=== PATIENT | male | born 1950 | race Caucasian/White ===

== ENCOUNTER 2019-02-04 09:34 | Emergency (ER) | payer MEDICARE, OTHER, SELFPAY ==
[2019-02-04 09:35] VITALS: BP 139/69; PULSE 79; RESP 20; TEMP 36.3; O2SAT 95; BMI 35.8
--- NOTE | 2019-02-04 09:39 | EKG12_ITS ---
Test Reason : ABNL PAIN Blood Pressure : / mmHG Vent. Rate : 078 BPM Atrial Rate : 078 BPM P-R Int : 166 ms QRS Dur : 092 ms QT Int : 390 ms P-R-T Axes : 064 -30 044 degrees QTc Int : 444 ms Normal sinus rhythm Left axis deviation Abnormal ECG Confirmed by BERRY LEWIS ([id number]), senior editor SO WHITTAKER ([id number]) on 02/11/2019 8:51:50 AM Referred By: WOODY Confirmed By:BERRY LEWIS
--- NOTE | 2019-02-04 09:49 | CT_ITS ---
STUDY: CT ABDOMEN AND PELVIS WITHOUT CONTRAST REASON FOR EXAM: Male, 68 years old. Abdominal pain and diarrhea following ingestion of clindamycin. RADIATION DOSAGE (If Supplied By Facility): CTDIvol = ( 14.80 ) mGy, DLP = ( 770.45 ) mGycm TECHNIQUE: Transaxial images were obtained from the dome of the diaphragm to the symphysis pubis without oral contrast, and without intravenous contrast. Sagittal and coronal images were reconstructed. Individualized dose optimization techniques were used for this CT. COMPARISON: None. FINDINGS: The visualized lung bases are unremarkable. The visualized portions of the heart are within normal limits. Normal liver. There are multiple gallstones. Normal spleen. Normal pancreas. Normal bilateral adrenal glands. Normal right kidney. Normal left kidney. Normal visualized stomach. Normal small intestine. There are multiple colonic diverticula consistent with diverticulosis. The appendix is visualized and appears normal. There is diffuse atherosclerotic calcification of the abdominal aorta, without a demonstrated aneurysm. Normal inferior vena cava. Normal retroperitoneum. Normal urinary bladder. Small bilateral inguinal lymph nodes. Normal abdominal wall. There are diffuse degenerative changes of the visualized lumbar spine. CT/Abdomen/Pelvis without Cont IMPRESSION: Sigmoid diverticulosis. Multiple gallstones. Electronically Signed: Rivas Thomson, at 11:13 EDT , Service support ,
--- NOTE | 2019-02-04 09:51 | ED.VISSUMM ---
- ER Visit Summary Date of Service: 02/04/19 Chief Complaint: [] Generalized abdominal pain diarrhea after starting clindamycin yesterday History of Present Illness: The patient is a 68 M [] patient indicates he has hypertension diabetes and cholesterol, he indicates he is to have a full mouth extraction in preparation for dentures, he was started on clindamycin yesterday took about 2 or 3 doses of it began having diffuse abdominal discomfort and diarrhea has been quite constant, he is been no blood in the diarrhea no vomiting he stopped the antibiotic continue to have symptoms and came in this morning for evaluation, he had prior colonoscopy 10 years ago related to rectal bleeding that was unremarkable, he generally has no GI issues of any kind all of his health conditions have been very stable he was not sick before he took the clindamycin, he has no history of C. difficile no history of exposures to tainted food or sick individuals Physical Examination: [] Vital signs are within normal range febrile General, no distress resting comfortably, he complains of diffuse generalized abdominal pain there is no focality to the pain HEENT is generally unremarkable The neck is supple no adenopathy Cardiovascular, regular rate and rhythm Lungs, clear bilateral Abdomen, soft nontender, soft he has had nonspecific sense of discomfort but no rebound guarding organomegaly no fullness Extremities, no clubbing cyanosis or edema Neurologic, awake alert answering questions appropriately moving all 4 extremities Test Results: [] Emergency Department Course and Treatment: [] Given his age and his complaints and his concerns screening labs are obtained IV fluids pain management we will try to obtain stool sample Treatment Plan: [] The patient's screening labs are all generally unremarkable see those reports, his CT scan shows gallstones no other acute abnormality, see that report, He has not had to have a bowel movement while in the ED, I explained all the test results to him his clinical status is very stable he understands to stop the antibiotic stay in a bland diet follow-up with his family physicians and outpatient providers in the next few days and return for change in symptoms he understands as does his Disposition: [] Home stable Impression: [] Diffuse abdominal cramps with diarrhea after antibiotic therapy improved This note was generated with [employer] software. It may contain incorrect words, spelling, and punctuation that were not noted in review of the chart prior to signing ED Disposition - Plan for ED Patient: Referrals: Kaushal Hyde III, MD [Primary Care Provider] -
[2019-02-04 10:14] LABS: Absolute Lymphocyte Count 1.82 X10^3/ul (0.83-4.51); Absolute Neutrophil Count 6.6 X10^3/uL (2.0-7.7); Basophil# 0.03 X10^3/uL; Basophil% 0.3 % (0-1); Eosinophil# 0.04 X10^3/uL; Eosinophils% 0.4 % (0-5); Hematocrit 49.2 % (40-54); Lymphocyte # 1.82 X10^3/ul (4.0); Lymphocyte % 20.2 % (19-41); Mean Corp Hgb Conc 34.6 g/gl (32-36); Mean Corpuscular Hgb 31.1 pg (27.0-32.0); Mean Corpuscular Volume 90.1 fL (80-94); Mean Platelet Vol. 9.9 fl (6.2-12.0); Monocyte# 0.51 X10^3/uL; Monocyte% 5.6 % (0-10); Neutrophil # 6.61 X10^3/uL (2.7-7.7); Neutrophil % 73.3 % (47-70); POSITIVE COUNT NO; POSITIVE DIFFERENTIAL NO; POSITIVE MORPHOLOGY NO; Platelet Count 245 K/mm3 (150-450); RBC Distribution Width CV 14.3 % (11.6-14.6); RBC Distribution Width SD 47.2 fl (35.1-43.9); Red Blood Count 5.46 M/mm3 (4.6-6.2)
[2019-02-04] MEDS: Ondansetron 4 MG/2 ML Vial IV (10:23)
[2019-02-04] MEDS: 0.9% Normal Saline 1,000 ML 125 ML IV (10:23)
[2019-02-04] MEDS: morphine 8 MG/ML Syringe IV (10:24)
[2019-02-04 10:37] LABS: ALB/GLOB Ratio 1.1 RATIO (0.9-2.4); AST(SGOT) 26 U/L (15-37); Alanine Aminotransfer ALT/SGPT 41 U/L (16-61); Albumin, Serum 3.8 g/dL (3.2-5.0); Alkaline Phosphatase 81 U/L (45-117); Anion Gap 8 (5-15); BUN 15 mg/dL (7-18); BUN/Creat Ratio 12.2 RATIO (10-20); Calcium,Total 9.1 mg/dL (8.5-10.1); Chloride 107 mmol/L (98-107); Creatinine, Serum 1.23 mg/dL (0.70-1.30); EST Glomerular Filtration Rate 62 mL/min (>60); Est Glom Filt Rate - Afr Amer 75 mL/min (>60); Estimated Creatinine Clearance 63.97 ml/min; Globulin 3.6 g/dL (2.2-4.2); Glucose 138 mg/dL (74-106); Lipase 356 U/L (73-393); Potassium 3.8 mmol/L (3.5-5.1); Protein, Total 7.4 g/dL (6.4-8.2); Sodium Level 139 mmol/L (136-145)
[2019-02-04 10:42] LABS: Color, Urine Yellow (Yellow); Glucose, Dipstick Normal (Normal); Ketone-Dipstick Negative (Negative); Leukocyte Esterase-Dipstick 25 /ul (Negative); Nitrite-Dipstick Negative (Negative); Occult Blood-Urine 10 /ul (Negative); Protein-Dipstick Negative (Negative); Specific Gravity, Urine 1.015 (1.002-1.030); Urine Bilirubin Dipstick Negative (Negative); Urine Clarity Sl. Cloudy (Clear); Urine Urobilinogen Normal (Normal)
[2019-02-04 10:48] LABS: Bacteria RARE /hpf (None Seen); Mucous, Urine RARE /hpf (<or=2+); Red Blood Cells-Urine 0-5 SEEN /hpf (0-5); Squamous Epithelial Cells - UA 0-5 SEEN /hpf (0-5); White Blood Cells 0-5 SEEN /hpf (0-5)
[2019-02-04 11:00] VITALS: BP 139/79; PULSE 64; RESP 19; O2SAT 98
[2019-02-04] MEDS: Morphine 4 MG/ML Syringe IV (11:06)
--- NOTE | 2019-02-04 11:44 | ED.DEP ---
ED Disposition - Plan for ED Patient: Instructions: ED Abdominal Pain Unkn Cause Male Referrals: Kaushal Hyde III, MD [Primary Care Provider] -
[2019-02-04 11:54] VITALS: BP 135/79; PULSE 89; RESP 16; O2SAT 99
== END 2019-02-04 11:55 | disposition home or self-care (01) ==
LOC: ED 10:14
PROVIDERS: Emergency Provider Emergency Medicine; Family Provider Family Medicine; PCP Family Medicine
DX: R10.84 Generalized abdominal pain (principal); R19.7 Diarrhea, unspecified; K80.80 Other cholelithiasis without obstruction; I10 Essential (primary) hypertension; E78.00 Pure hypercholesterolemia, unspecified; E11.9 Type 2 diabetes mellitus without complications; Z79.84 Long term (current) use of oral hypoglycemic drugs; Z79.899 Other long term (current) drug therapy
CPT/HCPCS: 74176; 80053; 81001; 83690; 84484; 85025; 93005; 96361; 96374; 96375; 99283; J7030; J7040; A4216; J2405

== ENCOUNTER → 2020-07-25 06:56 | Outpatient (CLI) | payer MEDICARE, OTHER, SELFPAY ==
[2020-05-29 12:31] VITALS: BMI 35.8
--- NOTE | 2020-07-25 06:57 | CT_ITS ---
STUDY: CT SCAN LOWER EXTREMITY LEFT REASON FOR EXAM: Male, 69 years old. GERALDO PROTOCOL, LT HIP PAIN RADIATION DOSAGE (If Supplied By Facility): CTDIvol = ( 14.07 ) mGy, DLP = ( 937.91 ) mGycm. Individualized dose optimization techniques were used for this CT.? TECHNIQUE: Multiple axial tomographic images of the hip joint and knee joint were obtained. Coronal and sagittal reconstruction was obtained as well. COMPARISON: None. FINDINGS: There is a marked degree of the joint space narrowing along the superior lateral compartment of the left hip joint. There is evidence of a acetabular spur. A spur is also seen along the inferior medial aspect of the left femoral head. Moderate degree of joint space narrowing of the right hip joint with evidence of an acetabular spur. Degenerative changes of the sacroiliac joints bilaterally more prominent on the right side. This also evidence of a disc space narrowing and disc degeneration in the lower lumbar spine. Moderate degree of joint space narrowing of the medial compartment of the right knee joint as well as a mild degree of joint space narrowing involving the medial compartment of the left knee joint. CT/Extremity Lower without Contra IMPRESSION: Marked degree of osteoarthritis involving the left hip joint as described. Electronically Signed: Rivas Thomson, at 8:08 EST , Service support ,
== END ==
PROVIDERS: PCP Family Medicine; Referring Provider Orthopaedic Surgery; Visit Provider Orthopaedic Surgery
DX: M16.12 Unilateral primary osteoarthritis, left hip (principal)
CPT/HCPCS: 73700

== ENCOUNTER 2020-08-15 16:41 | Observation (INO) | payer MEDICARE, OTHER, SELFPAY ==
[2020-05-29 12:31] VITALS: BMI 35.8
--- NOTE | 2020-08-03 10:08 | EKG12_ITS ---
Test Reason : PREOP Blood Pressure : / mmHG Vent. Rate : 074 BPM Atrial Rate : 074 BPM P-R Int : 160 ms QRS Dur : 088 ms QT Int : 382 ms P-R-T Axes : 059 -34 033 degrees QTc Int : 424 ms Normal sinus rhythm Left axis deviation Abnormal ECG When compared with ECG of 04-FEB-2019 09:48, No significant change was found Confirmed by GIOVANI MARTINEZ, DEMI ([id number]), technical writer and editor SO WHITTAKER ([id number]) on 08/04/2020 10:57:06 AM Referred By: Swapnil Ag Confirmed By:DEMI MATUTE MD
[2020-08-03 10:55] LABS: Absolute Lymphocyte Count 2.58 X10^3/uL (0.83-4.51); Absolute Neutrophil Count 3.7 X10^3/uL (2.0-7.7); Basophil# 0.08 X10^3/uL; Basophil% 1.1 % (0-1); Eosinophil# 0.16 X10^3/uL; Eosinophils% 2.3 % (0-5); Hemoglobin 16.6 g/dL (13.0-16.5); Lymphocyte # 2.58 X10^3/ul (4.0); Lymphocyte % 36.4 % (19-41); Mean Corp Hgb Conc 33.2 g/dL (32-36); Mean Corpuscular Hgb 31.7 pg (27.0-32.0); Mean Corpuscular Volume 95.4 fL (80-94); Mean Platelet Vol. 10.1 fl (6.2-12.0); Monocyte% 7.1 % (0-10); NRBC Flagged by Analyzer 0 % (0-5); Neutrophil # 3.74 X10^3/uL (2.7-7.7); Neutrophil % 52.8 % (47-70); Platelet Count 243 K/mm3 (150-450); RBC Distribution Width CV 13.2 % (11.6-14.6); RBC Distribution Width SD 46.7 fl (35.1-43.9); Red Blood Count 5.24 M/mm3 (4.6-6.2); White Blood Count 7.1 K/mm3 (4.4-11.0)
[2020-08-03 11:06] LABS: Prothrombin Time (Protime)PT. 12.8 SECONDS (11.7-14.9)
[2020-08-03 11:07] LABS: Partial Thromboplast Time 31.1 Seconds (24.1-36.2)
[2020-08-03 11:25] LABS: Anion Gap 3 (5-15); BUN 17 mg/dL (7-18); BUN/Creat Ratio 15.5 RATIO (10-20); Calcium,Total 8.8 mg/dL (8.5-10.1); Chloride 107 mmol/L (98-107); EST Glomerular Filtration Rate 71 mL/min (>60); Est Glom Filt Rate - Afr Amer 85 mL/min (>60); Glucose 91 mg/dL (74-106); Magnesium 2.3 mg/dL (1.6-2.6); Potassium 4.1 mmol/L (3.5-5.1); Sodium Level 137 mmol/L (136-145)
[2020-08-15] VITALS (16 sets, daily range): BP systolic 94–128; BP diastolic 52–77; PULSE 60–87; RESP 12–18; TEMP 36–37.3; O2SAT 94–100; BMI 35.2
[2020-08-15] MEDS: Scopolamine 1mg/72hr Patch 1 PATCH TD (06:14)
[2020-08-15] MEDS: Celecoxib 200 MG Capsule 400 MG PO (06:14)
[2020-08-15] MEDS: Gabapentin 600 MG Tablet PO (06:15)
[2020-08-15] MEDS: Lactated Ringers 1,000 ML 100 ML IV (06:15)
[2020-08-15] MEDS: Acetaminophen 500 MG Tablet 1000 MG PO ×3 (06:15→22:13)
[2020-08-15] MEDS: Lactated Ringers 1,000 ML 999 ML IV (06:15)
[2020-08-15 07:00] LABS: Bedside Glucose 89 mg/dL (70-110)
--- NOTE | 2020-08-15 07:17 | PCM.HP.BLA ---
History and Physical Date of Admission: 08/15/20 Intake Intake Visit Reasons: left hip Is patient in pain?: Yes Allergies clindamycin Adverse Reaction (Verified 07/19/20 09:21) Abd cramps/diarrhea Penicillins [PCN] Adverse Reaction (Verified 07/19/20 09:21) Diarrhea Medications Atorvastatin Calcium [Lipitor] 40 mg PO QHS 02/04/19 [History Confirmed 07/19/20] gabapentin 300 mg capsule 300 mg PO TID 05/24/20 [History Confirmed 07/19/20] naproxen 250 mg tablet 250 mg PO BID 05/24/20 [History Confirmed 07/19/20] PFSH Social History (Updated 07/19/20 @ 10:[address] Swapnil Ag DO) Smoking Status: Current every day smoker HPI left hip: Details: Parts of this documentation were recorded by a scribe, this documentation accurately reflects the service provided and the decisions made by me, Dr. wSapnil Ag DO 07/19/20 [id number]. JOSH JENNINGS is a 69 year old M here today for to discuss left RANDY: Uribe 08/15/2020. Patient states that he continues to have left hip pain. He complains of pain into his groin, lateral hip and down into his knee. He has increased hip pain with walking and standing. Patient has decreased hip range of motion. He is ambulating with a cane due to his hip pain. Patient is taking naproxen and tylenol for pain. ROS Musc Reports joint pain, Reports limited joint movement, Reports stiffness Skin/Breast Reports system reviewed and no additional complaints, except as docu Neuro Yes system reviewed and no additional complaints, except as docu Ortho Exam Left Hip Skin/Wound: Yes CDI, No Ecchymosis, No soft tissue swelling, No Erythema Hip: Absent eccymosis, soft tissue swelling or erythema Homans Sign: No HIP: 40 degrees of ER, -15 degrees of IR. pain with IR/ER no concerning skin lesions or erythema or ecchymosis around hip. Supplemental Info 05/24/2020 x-ray lumbar spine advanced multilevel facet arthrosis multilevel degenerative disc disease with bridging osteophytes of anterior longitudinal ligament and posterior endplate osteophytes with foraminal stenosis particularly L4-L5And L5-S1 05/24/2020 x-ray left hipSevere left hip arthrosis with subchondral sclerosis joint space narrowing and osteophytesOf note there is also moderate to severe right hip arthrosisSeen on AP pelvis Assessment & Plan Problems 1. Primary osteoarthritis of left hip M16.12 2. Lumbar spondylosis M47.816 3. DDD (degenerative disc disease), lumbar M51.36 Plan Spoke with the patient about the surgery procedure and recovery. Explained his radiating pain is from his lumbar spine and will not be helped by his total hip replacement. Reviewed the pre-operative plans with the patient. Risks and benefits of the procedure were fully explained, including but not limited to infection, neurovascular injury, continued pain, arthritis, stiffness, need for further surgery, re-injury, DVT, PE, general risks of anesthesia, and loss of limb or life. The patient understands all the risks and does wish to proceed with written consent. He should follow hip precautions following his surgery, strict for 6 weeks but should follow for 3 months. He should stop his naproxen for 1 week prior to surgery and for 3 weeks following surgery, as he will be on a blood thinner for 3 weeks. He will be same day surgery. Patient will need a CT scan for templating for the camila robot. Follow up for his 2 week post op or sooner if pain, swelling, numbness or associated symptoms, or concerns develop. All questions answered. Patient in agreement of plan. Orders Orders: Extremity Lower without Contra Today M16.12 Coding Level of Care Code Off vis,est,level 3 Diagnoses Primary osteoarthritis of left hip M16.12 ??Osteoarthritis type: primary Lumbar spondylosis M47.816 DDD (degenerative disc disease), lumbar M51.36 I have re-examined the patient. There are no clinical changes since date of exam
[2020-08-15] MEDS: Cefazolin 2 GM in 0.9% Normal Saline 100 ML IV (07:43)
[2020-08-15] MEDS: dexAMETHasone 10 MG/ML Vial IV (07:46)
--- NOTE | 2020-08-15 10:07 | RAD_ITS ---
STUDY: X-RAY - PELVIS AND LEFT HIP REASON FOR EXAM: Male, 69 years old. Post op total hip. TECHNIQUE: 2 views of the pelvis and hip. COMPARISON: None. FINDINGS: There is a non-specific bowel gas pattern. Normal visualized soft tissue structures. There is diffuse demineralization of the osseous structures. There are yulissa along the left buttock region with soft tissue swelling and air consistent with recent surgery. Bilateral SI joints and iliac wings is not included entirely in the [id number]. Normal bilateral superior and inferior pubic rami. There are degenerative changes of the pubic symphysis with articular narrowing and sclerosis. Normal bilateral ischial tuberosities. Degenerative disease of the right hip. Moderate narrowing of the hip joint space. Left sided hip prosthesis in place with normal alignment. No left-sided fracture of the proximal left femur. RAD/Hip Min 2 Views (Portable) IMPRESSION: Status post recent surgery with left hip prosthesis in place. No acute fracture. Normal alignment. Electronically Signed: Shira Mcadams MD at 1:07 EST , Service support ,
--- NOTE | 2020-08-15 10:15 | DCINST_ITS ---
Discharge Diet: No Restrictions Weight Bearing Status: Weight bearing as tolerated Keep extremity elevated above heart level: Operative Extremity Call your doctor if you observe: Fever of 101 or Higher, Shortness of breath, Chest pain Additional Instructions: Do not shower 72hrs. Begin daily showering warm water antibacterial soap postop day #3( 72hrs Post-operatively) and then daily. Leave the dressing on for 72 hours postoperatively then may remove prior to first shower and change dressing daily after this until no drainage for 2 consecutive days then may leave open to air. Follow hip precautions that were reviewed in hospital. Wear compression stockings, may remove at night. Start physical therapy as directed in hospital. Follow prescriptions instructions do not take any other pain medication or differ dosing without consulting your physician. Do not take oral NSAIDs until blood thinner has been completed , then may begin the day after completion if needed . Call Dr. Ag's office with any concerns. Allergies/Adverse Reactions: Allergies EUGENIA Inhibitors Adverse Reaction (Severe, Verified 08/15/20 05:34) itching pseudoephedrine Adverse Reaction (Severe, Verified 08/15/20 05:34) unable to urinate clindamycin Adverse Reaction (Verified 08/15/20 05:34) Abd cramps/diarrhea Penicillins [PCN] Adverse Reaction (Verified 08/15/20 05:34) Diarrhea Medications to take at Discharge Atorvastatin Calcium [Lipitor] 40 mg PO QHS 02/04/19 naproxen 250 mg tablet 250 mg PO BID 05/24/20 Acetaminophen [Tylenol Extra Strength] 500 - 1,000 mg PO Q6H PRN PRN 07/31/20 Acetaminophen [Tylenol Extra Strength] 1,000 mg PO Q6H PRN #100 tab 08/15/20 Apixaban [Eliquis] 2.5 mg PO BID #42 tab 08/15/20 Cephalexin [Keflex] 1,000 mg PO Q8 #4 cap 08/15/20 Ondansetron HCl [Zofran] 4 mg PO Q6H PRN PRN 5 Days #15 tab 08/15/20 Oxycodone [Oxyir] 5 mg PO Q4H PRN PRN #60 tablet 08/15/20 The following prescriptions were given: Apixaban [Eliquis] 2.5 mg PO BID #42 tab Transmission Status: Pending to [facility] Cephalexin [Keflex] 1,000 mg PO Q8 #4 cap Transmission Status: Pending to [facility] Oxycodone [Oxyir] 5 mg PO Q4H PRN PRN #60 tablet PRN Reason: Pain Score 6-10 Transmission Status: Sent to [facility] Acetaminophen [Tylenol Extra Strength] 1,000 mg PO Q6H PRN #100 tab Transmission Status: Pending to [facility] Ondansetron HCl [Zofran] 4 mg PO Q6H PRN PRN 5 Days #15 tab PRN Reason: Nausea Transmission Status: Pending to [facility] Primary Care Physician: Kaushal Hyde III, MD [Primary Care Provider] - Test Results: Test results from this visit will be discussed in further detail at your follow- up appointment, if applicable. Please Follow Up With: Swapnil Ag DO - 2 weeks
--- NOTE | 2020-08-15 10:16 | PCM.OPRPT ---
Report of Operation Date of Procedure: 08/15/20 Description of Surgical Findings:: Preoperative diagnosis: Left hip DJD Postoperative diagnosis: Same Procedure: CT-guided Makoplasty assisted left total hip arthroplasty Implants: Ivelisse Accolade II stem size 8, 132 degree neck angle 2.5 neck length 56 mm Trident II acetabular shell with 35 mm cancellous screw 36 mm ceramic head Anesthesia: Spinal EBL: 225 cc Complications: None Condition: Stable to PACU Indication for procedure: This is a 69-year-old male who has had long-standing arthrosis of the hip who has failed conservative treatment and wished to undergo total hip arthroplasty. We did discuss operative versus nonoperative intervention including risks of bleeding, infection , nerve artery tissue damage, need for further surgery, fracture, leg length discrepancy dislocation blood clot and need for postoperative physical therapy and postoperative expectations. An informed consent was signed. Procedure: Patient was met in the preoperative holding area once again the operative extremity was identified by both patient and physician and was marked. Patient was met by anesthesia anesthesia was started. patient was then positioned in the lateral decubitus position on a well-padded pegboard with an axillary roll. All bony prominences were checked and padded. The patient was prepped and draped in the usual sterile fashion. A timeout was called to ensure the proper patient procedure and extremity were being contemplated. Anatomic landmarks were palpated and marked for a standard posterior lateral approach. Prior to this the ASIS was palpated and 3 fingerbreadths proximal to this 3 pins were placed at a 45 degree angle into the iliac crest with good purchase, stab incisions were made with a 15 blade into the skin prior to placement. The Makoplasty array was then secured. A 10 blade scalpel was used to make a posterior incision through the skin and subcutaneous tissue. retractors were used and electrocautery was used to maintain meticulous hemostasis and dissect full-thickness flaps until the gluteal fascia was reached. The gluteal fascia was incised in line with the gluteal fibers. The bursal tissue was then freed from the underside and a Charnley retractor was placed. The femoral trochanteric checkpoint was placed and leg length was assessed using the trochanteric checkpoint and an EKG lead that was placed on the knee prior to prepping the leg .the fat pad was then elevated off of the external rotators with electrocautery and the external rotators were dissected off of the greater trochanter including the piriformis and were tagged with #1 Ethibond for later repair. The joint capsule opened with posterior trapdoor technique. The hip was surgically dislocated. The measurement on the preoperative CT from the top of the lesser trochanter to the femoral neck cut was marked Hohmann was placed around the lesser trochanter. A neck cutting guide was used to hiram the neck with a Bovie and an oscillating saw was used complete the femoral neck cut. The femoral head was then removed and sized. We then turned our attention to the acetabulum. A Bovie was used to make a perforation in the anterior joint capsule and a Nieves retractor was placed this was repeated in the 6 o'clock position and a wide piotr was placed there. With a long handled knife the labral and pulvinar tissue were removed. We then registered the acetabulum with the pointing array and confirmed our landmarks. Once the socket was thoroughly prepared and labral tissue pulmonary was removed we single reamed with the robotic arm. We then used the robotic arm to position the acetabular implant and impacted it into place under robotic guidance. We then proceeded to place a posterior superior screw by drilling first measuring and inserting the screw. We then inserted a trial liner. And turned our attention back to the femur at this point a femoral elevator was used. As well as a pointed wide Hohmann around the lesser trochanter and a Hohmann to help retract the gluteus medius. A box chisel was used to remove excess lateral neck followed by a canal finder and a lateralizing reamer. This was followed by sequential broaches. Attention was made of the version within the canal based on preoperative templating. Once the final broach was seated we then trialed reduced the hip it was determined that a 132 degree neck angle with a 2.5 neck length was the appropriate size. We then checked stability with shuck testing as well as flexion and internal rotation. then proceeded with hip extension and checked leg lengths at the knees and heels as well as with the trochanteric checkpoint and knee EKG lead. At this point trials were removed. A liner was inserted to the cup. The femoral stem was inserted. We re-trialed and then proceeded to impact the femoral head onto the Max taper. We then surgically reduce the hip check stability again and leg lengths and were satisfied. Betadine rinse was allowed to sit for 5 minutes while everyone changed their gloves. Thorough irrigation was performed. Followed by closure of the external rotators with #2 FiberWire followed by closure of gluteal fascia with #1 Ethibond. 0 Vicryl fat stitches and 2-0 Vicryl subcutaneous stitches and yulissa in the skin. A pulls were placed in the pin sites over the iliac crest with Xeroform 4 x 4 and OpSite. dressing was applied to incisional area with Mepilex Ag and an abduction pillow was placed. Patient tolerated the procedure well there was no intraoperative complications all counts were correct and the patient was brought back to the PACU in stable condition
[2020-08-15] MEDS: Lactated Ringers 1,000 ML 125 ML IV (11:00)
[2020-08-15] MEDS: Ketorolac 15 MG/ML Vial IV (11:00)
[2020-08-15] MEDS: Cefazolin 1 GM/50 ML BAG IV ×2 (14:05→22:10)
[2020-08-15] MEDS: oxyCODONE 5 MG Tablet PO (18:41)
[2020-08-15] MEDS: Atorvastatin Calcium 40 MG Tablet PO (22:10)
[2020-08-15] MEDS: 0.9% NaCl Peripheral Flush Adult/Peds IV (22:13)
[2020-08-16] MEDS: oxyCODONE 5 MG Tablet PO ×3 (01:22→14:15)
[2020-08-16 01:55] VITALS: BP 98/56; PULSE 63; RESP 18; TEMP 36.6; O2SAT 95
[2020-08-16] MEDS: Acetaminophen 500 MG Tablet 1000 MG PO ×2 (05:47→14:17)
[2020-08-16] MEDS: APIXABAN 2.5 MG TABLET PO (05:48)
[2020-08-16] MEDS: Cefazolin 1 GM/50 ML BAG IV (05:52)
[2020-08-16] MEDS: 0.9% NaCl Peripheral Flush Adult/Peds IV (05:52)
[2020-08-16 07:58] VITALS: BP 112/52; PULSE 62; RESP 16; TEMP 36.6; O2SAT 96
--- NOTE | 2020-08-16 10:40 | CASEMGMT ---
NERIS PERALES Face to Face with patient for initial transition planning/care coordination assessment. RN CM introduced self and role at [facility]. Patient sitting in chair, alert and oriented. Patient willing to participate in assessment and is able to answer all questions appropriately. Care providers, pharmacy, and demographics verified. Patient wishes to discharge home and is setup with [facility] for outpatient therapy. Patient states he has no further needs or concerns at this time. CM to follow for discharge planning needs that may arise. PCP: Mary Ellen Specialists:Mando well control instructor; maritza Ag Preferred Pharmacy: [facility] Insurance: [facility], [place] Prescription Benefit: yes Living Will/HPOA: none LNOK: Living Arrangements: Patient lives with in a 2 story home with bed and bath on second floor. Patient states he was able to ambulate stair and independent prior to surgery. Transportation: DME/HHC: Patient states she has raised toilet, cane, walker, grab bars. Patient has outpatient therapy setup with [facility]. Disposition Plan: Patient to discharge home with outpatient therapy, family support, and follow-up plans in place. Diane FRIAS, RN, CM
--- NOTE | 2020-08-16 11:38 | PHA.DC.MC ---
Pharmacy Service has performed discharge medication reconciliation and counseling for this patient. 1. APIXABAN 2.5MG PO BID X 3 WEEKS 2. CEPHALEXIN 1000MG PO TONIGHT AT 9:00PM AND 1000MG TOMORROW AFTER 5:00AM 3. ONDANSETRON 4MG PO Q6H PRN NAUSEA 4. OXYCODONE 5-10MG PO Q4H PRN PAIN The patient's discharge medication list was reviewed for discrepancies and discrepancies were resolved. Home Medications Atorvastatin Calcium [Lipitor] 40 mg PO QHS 02/04/19 naproxen 250 mg tablet 250 mg PO BID 05/24/20 Acetaminophen [Tylenol Extra Strength] 1,000 mg PO Q6H PRN #100 tab 08/15/20 Apixaban [Eliquis] 2.5 mg PO BID #42 tab 08/15/20 Cephalexin [Keflex] 1,000 mg PO Q8 #4 cap 08/15/20 Ondansetron HCl [Zofran] 4 mg PO Q6H PRN PRN 5 Days #15 tab 08/15/20 Oxycodone [Oxyir] 5 mg PO Q4H PRN PRN #60 tab 08/15/20 The patient was counseled on the following discharge medications and changes in medications for homegoing were reviewed. The Reason for Use, instructions for use, and potential side effects were reviewed for all new medications. The patient's questions regarding all of their medications were answered. The patient was able to verbally demonstrate an understanding of their discharge medications.
[2020-08-16 14:36] VITALS: BP 131/59; PULSE 75; RESP 18; TEMP 36.6; O2SAT 97
== END 2020-08-16 14:49 | disposition home or self-care (01) ==
LOC: SDC 17:11 → MS3 17:11
PROVIDERS: Admitting Provider Orthopaedic Surgery; PCP Family Medicine; Referring Provider Orthopaedic Surgery; Visit Provider Orthopaedic Surgery
PROC: 8E0Y0CZ Robotic Assisted Procedure of Lower Extremity, Open Approach (ICD-10-PCS; CPT 27130; principal; 2020-08-15 07:00)
DX: M16.12 Unilateral primary osteoarthritis, left hip (principal); Z20.828 Contact with and (suspected) exposure to other viral communicable diseases; Z79.899 Other long term (current) drug therapy; F17.200 Nicotine dependence, unspecified, uncomplicated; M47.816 Spondylosis without myelopathy or radiculopathy, lumbar region; M51.36 Other intervertebral disc degeneration, lumbar region; R94.31 Abnormal electrocardiogram [ECG] [EKG]; Z87.19 Personal history of other diseases of the digestive system; Z86.39 Personal history of other endocrine, nutritional and metabolic disease; E78.00 Pure hypercholesterolemia, unspecified
CPT/HCPCS: 01214; 27130; S2900; 36415; 73502; 80048; 82962; 83735; 85025; 85610; 85730; 86850; 86900; 86901; 87081; 87426; 93005; 96365; 96366; 97116; 97162; 97166; 97530; 97535; 99218; 99406; C1713; C1776; C9803; J7120; A4216; G0378; G0379; J2405

== ENCOUNTER → 2020-09-04 10:58 | Outpatient (CLI) | payer MEDICARE, OTHER, SELFPAY ==
[2020-09-04 11:40] LABS: Absolute Lymphocyte Count 1.89 X10^3/uL (0.83-4.51); Absolute Neutrophil Count 9.1 X10^3/uL (2.0-7.7); Basophil# 0.06 X10^3/uL; Basophil% 0.5 % (0-1); Eosinophil# 0.03 X10^3/uL; Eosinophils% 0.3 % (0-5); Erythrocyte Sedimentation Rate 35 mm/hr (0-20); Lymphocyte # 1.89 X10^3/ul (4.0); Lymphocyte % 15.9 % (19-41); Mean Corp Hgb Conc 32.4 g/dL (32-36); Mean Corpuscular Hgb 31.1 pg (27.0-32.0); Mean Corpuscular Volume 95.9 fL (80-94); Mean Platelet Vol. 9.3 fl (6.2-12.0); Monocyte% 6.7 % (0-10); NRBC Flagged by Analyzer 0 % (0-5); Neutrophil # 9.06 X10^3/uL (2.7-7.7); Neutrophil % 76.1 % (47-70); Platelet Count 411 K/mm3 (150-450); RBC Distribution Width CV 13.1 % (11.6-14.6); RBC Distribution Width SD 45.9 fl (35.1-43.9); Red Blood Count 3.86 M/mm3 (4.6-6.2); White Blood Count 11.9 K/mm3 (4.4-11.0)
[2020-09-04 12:08] LABS: CRP 8.48 mg/L (0.0-3.0)
== END ==
PROVIDERS: PCP Family Medicine; Referring Provider Orthopaedic Surgery; Visit Provider Orthopaedic Surgery
DX: Z47.89 Encounter for other orthopedic aftercare (principal); M25.552 Pain in left hip
CPT/HCPCS: 36415; 85025; 85652; 86140

== ENCOUNTER → 2020-09-11 12:10 | Outpatient (CLI) | payer MEDICARE, OTHER, SELFPAY ==
[2020-09-11 12:42] LABS: Erythrocyte Sedimentation Rate 38 mm/hr (0-20)
[2020-09-11 12:44] LABS: Absolute Lymphocyte Count 2.49 X10^3/uL (0.83-4.51); Absolute Neutrophil Count 5.1 X10^3/uL (2.0-7.7); Basophil# 0.05 X10^3/uL; Basophil% 0.6 % (0-1); Eosinophils% 2.3 % (0-5); Hematocrit 35.3 % (40-54); Hemoglobin 11.4 g/dL (13.0-16.5); Lymphocyte # 2.49 X10^3/ul (4.0); Lymphocyte % 29.1 % (19-41); Mean Corp Hgb Conc 32.3 g/dL (32-36); Mean Corpuscular Hgb 31.5 pg (27.0-32.0); Mean Corpuscular Volume 97.5 fL (80-94); Monocyte# 0.64 X10^3/uL; Monocyte% 7.5 % (0-10); NRBC Flagged by Analyzer 0 % (0-5); Neutrophil # 5.13 X10^3/uL (2.7-7.7); Neutrophil % 59.9 % (47-70); Platelet Count 383 K/mm3 (150-450); RBC Distribution Width CV 13.4 % (11.6-14.6); RBC Distribution Width SD 48.1 fl (35.1-43.9); Red Blood Count 3.62 M/mm3 (4.6-6.2); White Blood Count 8.6 K/mm3 (4.4-11.0)
[2020-09-11 13:09] LABS: CRP 9.05 mg/L (0.0-3.0)
== END ==
PROVIDERS: PCP Family Medicine; Referring Provider Orthopaedic Surgery; Visit Provider Orthopaedic Surgery
DX: G89.18 Other acute postprocedural pain (principal); M25.552 Pain in left hip; Z96.642 Presence of left artificial hip joint
CPT/HCPCS: 36415; 85025; 85652; 86140

== ENCOUNTER 2020-11-14 08:30 | Outpatient (RCR) | payer MEDICARE, OTHER, SELFPAY ==
[2020-05-29 12:31] VITALS: BMI 35.8
[2020-08-15 18:16] VITALS: BMI 35.2
--- NOTE | 2020-08-21 10:26 | HP.PTEVAL_ITS ---
Patient's Visit Information JOSH JENNINGS is a 70 year old M referred to Physical Therapy by Dr. Swapnil Ag DO with a diagnosis of L RANDY- Scott. Date of Evaluation: 08/18/20 Physical Therapist: Cory Fair DPT - Visit Plan Frequency: 3x /Week Duration: 4-6 Weeks Plan: Start with ROM, progressing strength and walking program. Pt. to work on walking progression to eventually a walking program. may use modalities as needed. - Subjective Pt. is here today for his his initial evaluation S/P L RANDY- Scott. DOS: 08/15/20. Pt. reports overall feeling better than he did pre surgery, but is still sore today, its a different soreness. Pt. was having high levels of groin pain pre surgery. Pt. denies N/T in either LE. No calf pain, no dizziness, no light headedness, no diffculty breathing. Pt. arrives today using a standard walker. He has been able to sleep, but is waking frequently. Pt. is hopeful to decrease his symptoms, increased walking and get back to all recreational activities. He does still work on large farm equipment as a hobby, currently retired. - Pain L hip Pain Intensity (Out of 10): 6 Pain Intensity Range: 4, 8 - Objective POSTURE: pt. has general flexed posture with slight wt. shifting to R side. Pt. is able to stand with good hip extension, but prefers slight flexion due to pain. PALPATION: Pt. has tenderness to palpation throughout L hip. Did not see incision due to being covered with bandage. Pt. to take off tomorrow. NEURO: Pt. has normal sensation throughout BLEs. Normal DTR of BLEs. ROM: L hip: 71deg of flexion, extnsion -8 deg. MMT: L hip flexion- 2-/5, extension 3/5, abd 3/5. GAIT: Pt. ambulates with step to pattern with standard walker. Pt. tends to heavily use walker during L stance phase. Pt. reports mild increase in symptoms with L stance phase. - Goals Goal 1:: LTG: Pt. to be I with HEP. Goal Time Frame: 4-6 Weeks Goal 2:: STG: pt. to have increased ROM to atleast 90deg of fleixon and 10deg of extension. Goal Time Frame: 2-4 Weeks Goal 3:: LTG: pt. to ambulate without AD without increase in symptoms for unlimited distance. Goal Time Frame: 4-6 Weeks Goal 4:: STG: Pt. to sleep without increase in symptoms. Goal Time Frame: 2-4 Weeks Goal 5:: LTG: pt. to have increased LLE strength to 4+/5 throughout without increase in symptoms. Goal Time Frame: 4-6 Weeks Goal 6:: LTG: pt. to negotiate 1 flight of stairs with 1 HR with reciprocal pattern. Goal Time Frame: 4-6 Weeks - Rehabilitation Potential Physical Therapy Diagnosis: Pt. has signs and symptoms consistent with L RANDY with subsequent hypomobilty, weakness, difficulty with gait and increased pain. Pt. would benefit from PT to work on above limitations progressing back to recreational activities with pain. Rehabilitation Potential: Excellent - Anticipated Interventions Patient/Client Instruction: Educate patient on: Condition, Plan of Care, Risk Factors, Benefits of Fitness Program For the Purpose of:: To facilitate caregiver knowledge, To improve self management, To prevent re-injury, To improve ability to perform tasks related to life management, To improve tolerance to ADL's Therapeutic Exercise to Include: Strength training, Power training, Endurance training, Balance training, Coordination, Body mechanics, Postural training, Flexibilty training, Gait and locomotor training, Passive ROM, Active ROM For the Purpose of:: To decrease pain, To decrease swelling/inflammation, To increase ROM, To improve nutrient delivery to tissue, To increase oxygenation perfusion, To improve muscle performance and motor function, To improve ability to perform ADL's, To improve gait and locomotor functions, To improve health of tissue, To decrease soft tissue restriction, To increase flexibility/ROM, To improve endurance, To improve balance, To improve safety with gait Cryotherapy (ice pack, ice massage): Yes For the Purpose of:: To decrease pain, To decrease swelling/inflammation, To increase ROM Thank you for the opportunity to evaluate your patient. For Medicare and Medicare HMO plans, please review the plan of care and approve it. It will need to be FAXED BACK to us at [phone] for Medicare purposes. For Medicare only, by signing this I certify the plan of care. Please let me know if there are questions or concerns regarding this plan of care. Physician Signature: Date:
--- NOTE | 2020-10-10 11:34 | HP.PTREVAL_ITS ---
Dr. Swapnil Ag, DO, It has been my pleasure to treat JOSH JENNINGS over the last 17 visits for Phuong Chavez 08/15. Please see the progress note below for an update on the physical therapy plan of care! Subjective: Pt. reports I am doing well. no pain today; Pt. reports walking with cane most of the time, but has started to use less in the house. Exercises are going well at home. Objective/Function: Pt. is doing well. He has good ROM of L hip ~110deg of ROM without pain, 45deg of abd no issues, did not test rotation. MMT: pt. is also progressing with strength. L LE- ankle 5/5 throughout; knee ext 5-/5, flexion 5- /5; hip- flexion 4+/5, abd 4/5, ext 4+/5. Pt. ambulates with SPC with good pattern, slight lateral wt. shift to Rside, but minimal. Pt. has a slightly exaggerated pattern without AD. STAIRS: normal reciprocal pattern with use of 2 HR. Plan Plan: Pt. is progressing well. Pt. will be seen x1 per week for 3-4 weeks working on full strengthening, stair negotiaton with 1 HR and gait progressing away from AD. Cont. to progress strengthening and HEP for independent use. Goals Goal 1:: LTG: Pt. to be I with HEP. Goal Time Frame: 4-6 Weeks Goal Progress: Goal Met Goal 2:: STG: pt. to have increased ROM to atleast 90deg of fleixon and 10deg of extension. Goal Time Frame: 2-4 Weeks Goal Progress: Goal Met Goal 3:: LTG: pt. to ambulate without AD without increase in symptoms for unlimited distance. Goal Time Frame: 4-6 Weeks Goal Progress: Progressing Goal 4:: STG: Pt. to sleep without increase in symptoms. Goal Time Frame: 2-4 Weeks Goal Progress: Goal Met Goal 5:: LTG: pt. to have increased LLE strength to 4+/5 throughout without increase in symptoms. Goal Time Frame: 4-6 Weeks Goal Progress: Progressing Goal 6:: LTG: pt. to negotiate 1 flight of stairs with 1 HR with reciprocal pattern. Goal Time Frame: 4-6 Weeks Goal Progress: Progressing Anticipated Interventions Patient/Client Instruction: Educate patient on: Condition, Plan of Care, Risk F actors, Benefits of Fitness Program For the Purpose of:: To facilitate caregiver knowledge, To improve self management, To prevent re-injury, To improve ability to perform tasks related to life management, To improve tolerance to ADL's Therapeutic Exercise to Include: Strength training, Power training, Endurance training, Balance training, Coordination, Body mechanics, Postural training, Flexibilty training, Gait and locomotor training, Passive ROM, Active ROM For the Purpose of:: To decrease pain, To decrease swelling/inflammation, To increase ROM, To improve nutrient delivery to tissue, To increase oxygenation perfusion, To improve muscle performance and motor function, To improve ability to perform ADL's, To improve gait and locomotor functions, To improve health of tissue, To decrease soft tissue restriction, To increase flexibility/ROM, To improve endurance, To improve balance, To improve safety with gait Cryotherapy (ice pack, ice massage): Yes For the Purpose of:: To decrease pain, To decrease swelling/inflammation, To increase ROM Please do not hesitate to contact me at [phone] by phone or if you have questions or concerns regarding this new plan of care! Sincerely, Cory Fair DPT
--- NOTE | 2020-11-14 09:29 | HP.PTDCSUM ---
It has been my pleasure to treat JOSH JENNINGS referred by Dr. Swapnil Ag DO, with the diagnosis of Phuong PADILLA- Scott 08/15 for a total of 21 visit(s). Discharge Date: 11/14/20 Please see the following information for a summary of their discharge status. Subjective: Pt. reports being 95% better overall. He is back to all activies. He is walking without AD, but does use AD if icey or wet out. Pt. denies N/T and no pain. He is planning to slowly progress back to work, starting at a few hours at at time initially. HEP compliant. L hip Pain Intensity (Out of 10): 0 % Improvement: 95 Objective/Function: MMT: 5/5 throughout LLE no pain with testing. ROM: L hip- flexion 110deg, abd 45deg, ER active to 45deg, ext 15deg (tightness noted at end range). TU.3sec no AD. GAIT: Pt. ambulates well without AD. He does have slight loss of L hip extension during pre swing, but rest of gait is normal. STAIRS: 1 HR with reciprocal pattern, no pain noted. Overall he is doing very well. Pt. reports minimal pain, most of the time,he has no pain. He is to conttinue with progressing walking routine, to continue with standing hip flexor stretching and HS stretching. Goal 1:: LTG: Pt. to be I with HEP. Goal Progress: Goal Met Goal 2:: STG: pt. to have increased ROM to atleast 90deg of fleixon and 10deg of extension. Goal Progress: Goal Met Goal 3:: LTG: pt. to ambulate without AD without increase in symptoms for unlimited distance. Goal Progress: Goal Met Goal 4:: STG: Pt. to sleep without increase in symptoms. Goal Progress: Goal Met Goal 5:: LTG: pt. to have increased LLE strength to 4+/5 throughout without increase in symptoms. Goal Progress: Goal Met Goal 6:: LTG: pt. to negotiate 1 flight of stairs with 1 HR with reciprocal pattern. Goal Progress: Goal Met Plan: Pt. to be DC to HEP at this point in time. Discharge Comments: Pt. will be DC from PT at this point in time. HE has met all of his goals. He is to continue with progressive walking routine and work on consistent stretching. Pt. consents. He plans to slowly progress back to work activities as tolerated. If there are questions or concerns regarding this patient's physical therapy, please feel free to call me at [phone]. Thank you for the referral of this patient. Sincerely, DAVID LandaT
== END 2020-11-14 12:44 | disposition home or self-care (01) ==
LOC: PT 08:30
PROVIDERS: PCP Family Medicine; Referring Provider Orthopaedic Surgery; Visit Provider Orthopaedic Surgery
DX: Z47.1 Aftercare following joint replacement surgery (principal); Z96.642 Presence of left artificial hip joint
CPT/HCPCS: 97110; 97140; 97161; 97164